=== PATIENT | female | born 1975 | race Two or more races ===

== ENCOUNTER 2019-01-16 00:34 | Emergency (ER) | payer SELFPAY ==
[~2019-01-16] VITALS: Ht 162.6 cm; Wt 77.1 kg
[2019-01-16 00:48] VITALS: BP 132/87
== END 2019-01-16 00:57 | disposition left against medical advice (07) ==
LOC: EDBD 00:34 → ER 00:37
DX: R10.9 Unspecified abdominal pain (principal); Z53.21 Procedure and treatment not carried out due to patient leaving prior to being seen by health care provider